=== PATIENT | male | born 1955 | race Caucasian/White ===

== ENCOUNTER 2023-07-31 19:17 | Emergency (ER) | payer MEDICAID, OTHER ==
[~2023-07-31] VITALS: Ht 165 cm; Wt 49.0 kg
[2023-07-31 19:23] VITALS: BP 147/62
--- NOTE | 2023-07-31 20:18 | ED Respiratory ---
General Chief Complaint: Respiratory Problems Stated Complaint: SOB Source: patient, family, EMS Exam Limitations: clinical condition History of Present Illness Date Seen by Provider: Jul 31, 2023 Time Seen by Provider: 19:20 Initial Comments 75-year-old male with past medical history of end-stage lung cancer on hospice coming in via EMS from home due to not looking well. Patient lives alone, has hospice visit twice a week, [facility]. Family visited him today and noticed that he was not looking well. He has not been eating or drinking for the past couple of days. He is really been more altered, has just been sleeping. EMS reports his oxygen was 75% on room air. He is supposed to be wearing oxygen when he can remember. Family called 911, they were unaware that if you go to the hospital that it may revoke the hospice status. Allergies and Home Medications Allergies Coded Allergies: No Known Drug Allergies (Unverified , 07/31/23) Patient Home Medication List Home Medication List Reviewed: Yes Review of Systems Review of Systems Constitutional: No fever Physical Exam Vital Signs - First Documented Capillary Refill : Height: '" Weight: lbs. oz. kg; BMI Method: General Appearance: cachetic Eyes: Bilateral Eye Normal Inspection, Bilateral Eye PERRL HEENT: PERRL/EOMI, other (dry tongue) Neck: non-tender, full range of motion, supple, normal inspection Respiratory: chest non-tender, lungs clear, normal breath sounds, no respiratory distress, no accessory muscle use Cardiovascular: regular rate, rhythm, no edema Gastrointestinal: normal bowel sounds, non tender, soft Neurologic/Psychiatric: other (Opens eyes to voice and follows simple commands, disoriented) Progress/Results/Core Measures Suspected Sepsis SIRS Temperature: Pulse: Respiratory Rate: Blood Pressure / Mean: Results/Orders My Orders Orders - KARIN ROJO MD Lorazepam Injection (Lorazepam Injection (07/31/23 21:00) Lorazepam Injection (Lorazepam Injection (07/31/23 21:04) Morphine Injection (Morphine Injection (07/31/23 21:18) Medications Given in ED Current Medications Medications Dose Ordered Sig/Belkys Route Start Time Stop Time Status Last Admin Dose Admin Lorazepam 2 mg ONCE ONCE IM 07/31/23 21:00 07/31/23 21:02 DC 07/31/23 21:05 2 MG Vital Signs/I&O 07/31/23 07/31/23 07/31/23 19:23 19:23 21:00 Temp 36.8 Pulse 77 Resp 14 B/P (MAP) 147/62 (90) Pulse Ox 99 99 77 O2 Delivery Room Air Nasal Cannula OxyMask O2 Flow Rate 4.00 4.00 10.00 Capillary Refill : Progress Note : Progress Note 67-year-old hospice patient coming in via EMS from home due to not acting normal. ABCs were intact on 4 L oxygen on arrival. He is disoriented and foll owing commands, not really talking much and when he does it is more of a mumble. He is not eating or drinking, I suspect he is in the dying process. I discussed this with the patient's daughter, and she is able to reinforce that his wishes were to not get treatment for this a.m. he expected to . She is concerned since he lives alone, that he potentially could alone tonight. I contacted Dr. Carcamo, she will admit the patient to [facility] for comfort care. Update 21:32- patient decompensated rather quickly and it was evident his dying process was happening. Discussed with family we would not be transferring. He received IM ativan for comfort. Time of was 21:30. Departure Impression Primary Impression: Lung cancer Qualified Codes: C34.32 - Malignant neoplasm of lower lobe, left bronchus or lung Additional Impressions: Need for comfort care due to metastatic cancer Disposition: 20 Condition: KARIN ROJO MD Jul 31, 2023 20:18
[2023-07-31] MEDS ORDERED: morphine INJ 10 MG/ML 1ML (SYR OR VIAL) IM STA (21:18)
== END 2023-07-31 21:30 | disposition expired ==
LOC: ER FS 19:20
DX: C34.92 Malignant neoplasm of unspecified part of left bronchus or lung (principal); Z51.5 Encounter for palliative care